=== PATIENT | male | born 1945 | race Caucasian/White ===

== ENCOUNTER 2020-06-04 08:26 | Outpatient (CLI) | payer MEDICARE, OTHER, SELFPAY ==
--- NOTE | 2020-06-04 08:41 | USCV_ITS ---
Dave Mcclain Age: 74 Gender: M : 1945 Exam Date: 06/04/2020 08:50 Ordering Phys: Noris Lin APN Technologist: Rex Vernon Exam Location: [facility] [place] Indication: SCREENING AORTA HISTORY: Diameter (cm) AP x Transverse x Length Velocity (cm/s) Waveform Prox Aorta: 1.65 x 1.92 x 152.80 Triphasic Mid Aorta: 1.45 x 1.70 x 116.00 Triphasic Distal Aorta: 1.70 x 2.03 x 119.20 Triphasic Right Iliac Prox: 1.35 x 1.58 x 149.80 Triphasic Left Iliac Prox: 1.65 x 1.48 x 125.10 Triphasic Stent Prox Landing x x Aneurysmal Sac Max x x Lt Lat Sac Dim Rt Lat Sac Dim Stent Dist Landing x x Right Iliac Stent x x Left Iliac Stent x x Right Renal Art Left Renal Art FINDINGS: SMALL AO NO AAA CONCLUSIONS 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 No evidence of abdominal aortic or bilateral iliac aneurysm. Praveen Saini MD (Electronically Signed) Final Date: 04 June 2020 09:51 S
== END 2020-06-04 08:27 | disposition home or self-care (01) ==
LOC: RAD 08:37
PROVIDERS: Visit Provider Nurse Practitioner
DX: Z13.6 Encounter for screening for cardiovascular disorders (principal)
CPT/HCPCS: 76706

== ENCOUNTER → 2020-10-03 13:55 | Outpatient (BNVA) | payer MEDICARE, OTHER, SELFPAY | PROVIDERS: Visit Provider Surgery | DX: Z01.812 Encounter for preprocedural laboratory examination (principal); Z20.822 Contact with and (suspected) exposure to COVID-19 | CPT/HCPCS: 87635 ==

== ENCOUNTER 2020-10-09 09:44 | Day surgery (SDC) | payer MEDICARE, OTHER, SELFPAY ==
[2020-10-09 07:28] VITALS: BMI 32.1
[2020-10-09 10:05] VITALS: BP 151/79; PULSE 74; RESP 18; TEMP 36.7; O2SAT 94
[2020-10-09 10:20] LABS: Glucose Point of Care 103 mg/dL (70-110)
[2020-10-09] MEDS: sodium chloride 0.9% 1,000 ML 30 ML IV (10:20)
--- NOTE | 2020-10-09 10:20 | W.PM.OPSFHP ---
Same Day Surgery H&P Indication for Procedure/HPI DATE OF PROCEDURE: October 09, 2020 CHIEF COMPLAINT/INDICATIONFOR SURGICAL PROCEDURE: screening colonoscopy PREOP DIAGNOSIS: screening colonoscopy PLANNED PROCEDRUE: Operation Date: 10/09/20 11:30 Proposed Procedures p Colonoscopy 47534 Z12.11(Not Applicable) - Jose Chahal MD Medications/Allergies* Home Medications Medication Instructions Recorded Confirmed Type albuterol sulfate [Ventolin HFA] 2 inh INHALATION PRN PRN 10/09/20 10/09/20 History amlodipine 10 mg PO DAILY 10/09/20 10/09/20 History fluticasone propionate 50 mcg INTRANASAL BID 10/09/20 10/09/20 History hydrochlorothiazide 12.5 mg PO DAILY 10/09/20 10/09/20 History insulin aspart U-100 [Novolog 10 unit SUBCUT TID 10/09/20 10/09/20 History Flexpen U-100 Insulin] insulin degludec [Tresiba 70 unit SUBCUT DAILY 10/09/20 10/09/20 History FlexTouch U-100] lisinopril 40 mg PO BID 10/09/20 10/09/20 History simvastatin 20 mg PO DAILY 10/09/20 10/09/20 History Allergies/Adverse Reactions Allergy/AdvReac Type Severity Reaction Status Date / Time Penicillins Allergy ALGY-Rash Verified 10/09/20 07:19 Pertinent Exam Findings alert, oriented x 3 and regular rate & rhythm Recommendations Surgery/Procedure today Coding Level of Care Code Acute 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
--- NOTE | 2020-10-09 10:28 | ANES.PREANE2 ---
Pre-Anesthetic Assessment Pre-Anesthetic Assessment: Height/Weight: Height 1.84 m Weight 108.862 kg Temp Pulse Resp BP Pulse Ox 98.1 F 74 18 151/79 94 10/09/20 10:05 10/09/20 10:05 10/09/20 10:05 10/09/20 10:05 10/09/20 10:05 Preop Diagnosis: screening colonoscopy Proposed Procedure: Operation Date: 10/09/20 11:30 Proposed Procedures p Colonoscopy 64582 Z12.11(Not Applicable) - Jose Chahal MD Was Beta Aileen taken within 24 hours: N/A Was Clonidine taken within 24 hours: N/A Last intake: Intake Last Liquid Date 10/08/20 Last Liquid Time 22:00 Last Solid Date 10/08/20 Last Solid Time 07:00 Social: Social History: No alcohol and No tobacco Exam: Pre-Anes Outpt Exam: alert, oriented x 3, clear to auscultation bilaterally and regular rate & rhythm Airway: Submandibular: WNL Cervical ROM: WNL MP: 3 Dentition: Full CV/HEM: CV/HEM: HTN Metabolic: Metabolic: DM and Morbid obesity Anesthetic Plan: ASA status: 3 Anesthesia: MAC Risk of > 500 ml blood loss (7ml/kg in children): No Meds/Allergies Current Medications: Current Medications Generic Name Dose Route Start Last Admin Trade Name Freq PRN Reason Stop Dose Admin Sodium Chloride 1,000 mls @ 30 ml s/hr 10/09/20 10:15 10/09/20 10:20 Sodium Chloride 0.9% IV 10/10/20 10:14 30 mls/hr .Q24H ERMIAS Administration Data Anesthesia Other Labs: Laboratory Results - last 48 hr 10/09/20 10:16 POC Glucose 103 Cardiac Studies: No Data to Display
[2020-10-09 11:05] VITALS: BP 81/56; PULSE 66; RESP 18; TEMP 36.2; O2SAT 91
[2020-10-09 11:23] VITALS: BP 110/63; PULSE 69; RESP 18; O2SAT 96
--- NOTE | 2020-10-09 14:29 | ANE.PACU2 ---
Inpatient post-anesthesia follow up: Airway intact: Yes Vital signs: Temperature 97.1 F Pulse Rate 69 Respiratory Rate 18 Blood Pressure 110/63 Pulse Oximetry 96 Oxygen Delivery Me thod Room Air Oxygen Flow Rate 4 Fraction of Inspir ed Oxygen Hydration adequate: Yes Nausea and vomiting: No Pain level: 1 Mental status: Baseline
== END 2020-10-09 11:50 | disposition home or self-care (01) ==
PROVIDERS: Visit Provider Surgery
PROC: 0DJD8ZZ Inspection of Lower Intestinal Tract, Via Natural or Artificial Opening Endoscopic (ICD-10-PCS; CPT 45378; principal; 2020-10-09 11:30)
DX: Z12.11 Encounter for screening for malignant neoplasm of colon (principal); D12.0 Benign neoplasm of cecum; D12.4 Benign neoplasm of descending colon; D12.5 Benign neoplasm of sigmoid colon; D12.3 Benign neoplasm of transverse colon; I10 Essential (primary) hypertension; E11.9 Type 2 diabetes mellitus without complications; E66.01 Morbid (severe) obesity due to excess calories; Z68.32 Body mass index [BMI] 32.0-32.9, adult; Z79.4 Long term (current) use of insulin
CPT/HCPCS: 36416; 45380; 82962; 88305; 96360; J2704; J7030

== ENCOUNTER 2021-03-04 09:25 | Outpatient (CLI) | payer MEDICARE, OTHER, SELFPAY ==
--- NOTE | 2021-03-04 09:47 | MR_ITS ---
WS: [id number] MRI HEAD WITH CONTRAST WITH ATTENTION TO THE INTERNAL AUDITORY CANALS TECHNIQUE: Sagittal T1, T2 axial, T2 axial flair, axial susceptibility weighted imaging, axial diffus ion weighted images, and coronal T2 images were obtained. Pre and post T1 axial and post T1 coronal i mages. ADC and FSPGR images. Post gadolinium images with attention to the internal auditory canals. A xial fiesta imaging. CLINICAL INFORMATION: SENSORINEURAL HEARING LOSS, BILATERAL COMPARISON: None. FINDINGS: No evidence of restricted diffusion to suggest acute ischemia. Ventricular system and basal cisterns are patent. Moderate small vessel changes. Moderate parenchymal volume loss. Normal posterior fossa. Normal vascular flow voids at the skull base. No extra axial fluid collections. No evidence of mass o r mass effect. Paranasal sinuses and mastoid air cells are well aerated. Normal optic chiasm and pituitary infundibulum. Moderate symmetric atrophy temporal lobes and hippoca mpal formations. Proximal 7th and 8th cranial nerves are normal. No evidence of enhancing IAC or CP a ngle mass. Normal cavernous sinuses and Meckel's cave. 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 This can be asymptomatic but can be seen with trigeminal neurovascular compression in th e appropriate clinical setting. Correlate for trigeminal neuralgia. No abnormal gadolinium enhancement. Normal dural venous sinuses. MR/MR iac's wo/w con* [id number] IMPRESSION: 1. No evidence of restricted diffusion to suggest acute ischemia. 2. No evidence of enhancing IAC or CP angle mass. 3. 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 This is often asymptomatic but can be seen with trigeminal neurovascular compression in the appropriate clinical setting. Darren elate for trigeminal neuralgia. 4. Moderate small vessel changes with moderate parenchymal volume loss. 5. Moderate symmetric atrophy temporal lobes and hippocampal formations. 6. No abnormal intracranial enhancement. 7. Paranasal sinuses and mastoid air cells are well aerated.
== END 2021-03-04 09:26 | disposition home or self-care (01) ==
PROVIDERS: Visit Provider Otolaryngology
DX: H90.3 Sensorineural hearing loss, bilateral (principal)
CPT/HCPCS: 70553; A9579

== ENCOUNTER 2021-11-12 09:40 | Emergency (ER) | payer MEDICARE, OTHER, SELFPAY ==
[2021-11-12 09:56] VITALS: BP 177/71; PULSE 81; RESP 16; TEMP 36.7; O2SAT 95; BMI 28.4
--- NOTE | 2021-11-12 10:07 | CT_ITS ---
WS: [id number] CT FACIAL BONES TECHNIQUE: Noncontrast facial bones with coronal and sagittal reformatted images. CLINICAL INFORMATION: nasal trauma COMPARISON: None. DLP: 634.[address] scans at [facility] use at least one of these dose optimization techniques: automated e xposure control; mA and/or kV adjustment per patient size (includes targeted exams where dose is matc hed to clinical indication); or iterative reconstruction. FINDINGS: Soft tissue edema with depressed slightly comminuted fractures involving the anterior nasal bones. Ir regular nasal deviation with fracture involving the anterior nasal septum. Mild mucosal thickening in the ethmoid air cells. Frontal sinuses are well aerated. Maxillary sinuses are well aerated. Sphenoid sinuses are well aerated. Mastoid air cells well aerated.Cavernous caroti d calcification. Normal parapharyngeal fat. Normal visualized nasopharynx. CT/CT facial bones wo con* [id number] IMPRESSION: 1. Depressed comminuted fractures of the anterior nasal bones. 2. Acute appearing fracture of the anterior nasal septum with RIGHT to LEFT na su septal deviation. 3. Mild mucosal thickening ethmoid air cells. Paranasal sinuses are otherwise well aerated.
--- NOTE | 2021-11-12 10:07 | CT_ITS ---
WS: [id number] CT HEAD TECHNIQUE: Noncontrast CT of the head obtained from the skullbase to the vertex. CLINICAL INFORMATION: injury/nasal trauma/GUERRERO COMPARISON: None. DLP: 1124.[address] scans at [facility] use at least one of these dose optimization techniques: automated e xposure control; mA and/or kV adjustment per patient size (includes targeted exams where dose is matc hed to clinical indication); or iterative reconstruction. FINDINGS: No evidence of intracranial hemorrhage or mass effect. Ventricular system and basal cisterns are [place] nt. Mild small vessel changes with moderate parenchymal volume loss. Tiny chronic lacunar infarct LEF T caudate. No extra-axial fluid collections. Paranasal sinuses and mastoid air cells are well aerated. . Soft tissue edema anterior face with part ially visualized anterior nasal bone fractures. CT/CT head wo con* [id number] IMPRESSION: 1. No evidence of intracranial hemorrhage or mass effect. 2. Mild small vessel changes with moderate parenchymal volume loss. 3. Soft tissue edema anterior face with partially visualized anterior nasal santos ne fractures. 4. No acute intracranial findings.
--- NOTE | 2021-11-12 10:08 | W.ED.HEATRA ---
HPI - Head Injury General: Chief complaint: Head Injury Stated complaint: nose bridge pain Time Seen by Provider: 11/12/21 09:47 Source: patient Mode of arrival: ambulatory Limitations: no limitations History of Present Illness: Patient is a nice 76-year-old male who presents to ED today with complaint of a facial injury. Patient states he was on a tractor and trying to move a branch when the branch came back and smacked him in the face/nose. He denies LOC. He states most of his pain is localized to the nose. He does have a headache. He feels like his nose is crooked . Patient is not on blood thinners. Tetanus is up-to-date. He is not having any neck pain. He has not had any epistaxis. MD Complaint: head injury and other (facial injury) Onset (ago): hour(s) Place: home Loss of Consciousness: no Location of injury: face Severity: mild Other Injuries: none Associated symptoms: Reports other (headache); Deny confusion, nausea, neck pain, vertigo or vomiting Review of Systems Eyes: Denies: change in vision, blurry vision, blind spots, floaters or seeing flashes ENMT: Reports: sinus pain (nasal pain/deformity); Denies: nasal discharge, nasal congestion, epistaxis or post nasal drip GI: Denies: nausea or vomiting Musc: Denies: neck pain Neuro: Reports: headache(s); Denies: numbness in extremities, weakness in extremities, sensory changes, lack of coordination, difficulty walking, dizziness, vertigo, confusion, behavioral changes, Slurred speech present, difficulty communicating thoughts or seizure-like activity [facility] ED PFSH: Medical History Diabetes mellitus Hypertension Surgical History H/O umbilical hernia repair Status post colonoscopy (10/09/20) Physical Exam Const: COMMON NORMALS: no acute distress, patient oriented x3, no limitations and alert ORIENTATION/CONSCIOUSNESS: Yes awake, Yes oriented to person, Yes oriented to place and Yes oriented to time HENMT: COMMON NORMALS: normocephalic, atraumatic and TM's normal bilaterally HEAD & SCALP: normal to inspection, normocephalic and atraumatic FACE & SINUS: normal facial exam (apart from nasal findings); no sinus tenderness, no crepitus and no Facial tenderness on exam of face and sinuses (apart from bony nose) NOSE: Normal nares present, Normal septum present (no septal hematoma), No nasal discharge present and Other nasal findings present (pt with bony tenderness/deformity to nasal bones); no Epistaxis present TYMPANIC MEMBRANE: TM's normal bilaterally MOUTH: other (no intraoral injuries noted) Eye: GENERAL EYE: appearance normal, both eyes and all related structures Neck/C-Spine: COMMON NORMALS: full ROM CERVICAL SPINE: Yes cervical ROM normal, No pain with cervical ROM, No Cervical spine tenderness and No step off deformity Neuro: CARINA COMA SCALE: document GCS findings Carina coma scale eye opening: Spontaneous [place] coma scale verbal response: Orientated Carina coma scale motor response: Obey commands [place] coma scale total score: 15 COMMON NORMALS: patient oriented x3, CN's II-XII intact bilaterally, moves all extremities, no focal motor deficits, no sensory deficits noted and gait normal SENSORIUM/ORIENTATION: Yes alert, Yes oriented to person, Yes oriented to place and Yes oriented to time Skin: TRAUMA: no lacerations or abrasions Course Vital Signs: Vital signs: Vital Signs Temperature 97.6 F 11/12/21 11:24 Pulse Rate 74 11/12/21 11:24 Respiratory Rate 16 11/12/21 11:24 Blood Pressure 162/70 11/12/21 11:24 Pulse Oximetry 94 11/12/21 11:24 Oxygen Delivery Me thod 11/12/21 11:12 MDM - Head Injury Medcial Decision Making CT head neg. CT facial bones showing depressed comminuted fractures of the anterior nasal bones and fracture of the anterior nasal septum with deviation. Patient will be placed on antibiotics and we will get him follow-up with ENT/Dr. Johns for further evaluation/treatment. Patient states he is comfortable with OTC medications for discomfort. Return to ED precautions given. Lab Data Radiology Impressions Face CT 11/12/21 10:07 IMPRESSION: 1. Depressed comminuted fractures of the anterior nasal bones. 2. Acute appearing fracture of the anterior nasal septum with RIGHT to LEFT nasal septal deviation. 3. Mild mucosal thickening ethmoid air cells. Paranasal sinuses are otherwise well aerated. Head CT 11/12/21 10:07 IMPRESSION: 1. No evidence of intracranial hemorrhage or mass effect. 2. Mild small vessel changes with moderate parenchymal volume loss. 3. Soft tissue edema anterior face with partially visualized anterior nasal bone fractures. 4. No acute intracranial findings. Discharge Plan Discharge Patient Disposition: Home Clinical Impression: Fracture of nasal bone Qualifiers: Encounter type: initial encounter Fracture type: closed Qualified Code(s): S02.2XXA - Fracture of nasal bones, initial encounter for closed fracture Condition: Stable Prescriptions: New cefdinir 300 mg capsule 300 mg PO BID 10 Days Qty: 20 0RF No Action amlodipine 10 mg tablet 10 mg PO DAILY simvastatin 20 mg tablet 20 mg PO DAILY hydrochlorothiazide 12.5 mg capsule 12.5 mg PO DAILY albuterol sulfate [Ventolin HFA] 90 mcg/actuation HFA aerosol inhaler 2 inh INHALATION PRN PRN (Reason: Wheezing) lisinopril 40 mg tablet 40 mg PO BID fluticasone propionate 50 mcg/actuation spray,suspension 50 mcg INTRANASAL BID insulin aspart U-100 [Novolog Flexpen U-100 Insulin] 100 unit/mL (3 mL) insulin pen 10 unit SUBCUT TID Tresiba FlexTouch U-100 100 unit/mL (3 mL) insulin pen 70 unit SUBCUT DAILY Discharge Orders: Discharge ED (Routine); Ordered 11/12/21 Ordered By: Joan Azul Referrals: Avni Johns MD [Physician] - Patient Instructions: Nasal Fracture (ED) Activity Restrictions/Additional Instructions: As we discussed you should hear from case management today or tomorrow in regards to your follow-up appointment with Dr. Johns/ENT. Coding Level of Care Code ED Dumper Bulk System for Rosaurag Fwd Exam Detailed
[2021-11-12 11:12] VITALS: BP 177/71; PULSE 81; RESP 16; TEMP 36.6; O2SAT 95
[2021-11-12 11:24] VITALS: BP 162/70; PULSE 74; RESP 16; TEMP 36.4; O2SAT 94
--- NOTE | 2021-11-14 13:17 | DCPLANNER ---
Addendum entered by Damari Quesada 12/02/21 13:38: Patient had a follow up appointment scheduled for 11.24.21 with ENT - patient did attend appointment. Addendum entered by Damari Quesada 11/20/21 15:29: Patient has a follow up appointment scheduled for Wednesday, November 24, 2021 at 3:[address] Johns, ENT. Clinic will call patient with appointment information. Original Note: harbor department manager had message to schedule a follow up appointment for patient with ENT. harbor department manager sent patients information to the front office staff at ENT. Patients information will be printed and reviewed. Clinic will call patient with appointment information.
== END 2021-11-12 11:30 | disposition home or self-care (01) ==
PROVIDERS: Emergency Provider Physician Assistant
DX: S02.2XXA Fracture of nasal bones, initial encounter for closed fracture (principal); Z79.4 Long term (current) use of insulin; E11.9 Type 2 diabetes mellitus without complications; I10 Essential (primary) hypertension; W20.8XXA Other cause of strike by thrown, projected or falling object, initial encounter
CPT/HCPCS: 70450; 70486; 99284

== ENCOUNTER → 2021-11-24 14:45 | Outpatient (BNVA) | payer MEDICARE, OTHER, SELFPAY | PROVIDERS: Visit Provider Otolaryngology | DX: X58.XXXA Exposure to other specified factors, initial encounter (principal); S02.2XXA Fracture of nasal bones, initial encounter for closed fracture; J34.2 Deviated nasal septum | CPT/HCPCS: 99203; 99204 ==

== ENCOUNTER 2021-11-27 09:52 | Day surgery (SDC) | payer MEDICARE, OTHER, SELFPAY ==
[2021-11-26 14:19] VITALS: BMI 31.6
[2021-11-27] VITALS (12 sets, daily range): BP systolic 125–164; BP diastolic 67–82; PULSE 72–89; RESP 12–18; TEMP 36.2–36.8; O2SAT 94–97
[2021-11-27] MEDS: sodium chloride 0.9% 1,000 ML 30 ML IV (10:20)
--- NOTE | 2021-11-27 10:23 | ANES.PREANE2 ---
Pre-Anesthetic Assessment Height/Weight: Height 1.85 m Weight 108.862 kg Temp Pulse Resp BP Pulse Ox O2 Del Method 97.5 F L 74 18 159/72 94 11/27/21 10:02 11/27/21 10:02 11/27/21 10:02 11/27/21 10:02 11/27/21 10:02 11/27/21 10:08 Preop Diagnosis: Displaced nasal and concomitant septal fracture Operation Date: 11/27/21 11:25 Proposed Procedures p ORIF Displacement Nasal/Septum, poss Turbinate Reduction(Not Applicable) - Avni Johns MD Familial anesthetic complications: None Was Beta Aileen taken within 24 hours: N/A Was Clonidine taken within 24 hours: N/A Last intake: Intake Last Liquid Date 11/26/21 Last Liquid Time 20:00 Last Solid Date 11/26/21 Last Solid Time 20:00 Social No alcohol and No tobacco Exam alert, oriented x 3, clear to auscultation bilaterally and regular rate & rhythm Airway Mallampati: Class III Dentition: full Pulmonary None reported CV/HEM Hypertension None reported Hepatic None reported GI None reported Metabolic Diabetes Mellitus and Hyperlipidemia [facility] None reported Neuropsych None reported Anesthetic Plan ASA status: 3 Anesthesia: General Risk of > 500 ml blood loss (7ml/kg in children): No Medications/Allergies Home Medications Medication Instructions Recorded Confirmed Last Taken Type albuterol sulfate 90 mcg/actuation 2 inh inhalation PRN PRN Wheezing 10/09/20 11/26/21 10/07/20 History aerosol inhaler (Ventolin HFA) amlodipine 10 mg tablet 10 mg PO DAILY 10/09/20 11/27/21 11/27/21 05:15 History fluticasone propionate 50 50 mcg intranasal BID 10/09/20 11/27/21 11/26/21 18:00 History mcg/actuation nasal spray,suspension hydrochlorothiazide 12.5 mg capsule 12.5 mg PO DAILY 10/09/20 11/27/21 11/26/21 05:15 History insulin aspart U-100 100 unit/mL 10 unit SUBCUT TID 10/09/20 11/27/21 11/26/21 18:00 History (3 mL) subcutaneous pen (Novolog Flexpen U-100 Insulin aspart) insulin degludec 100 unit/mL (3 70 unit SUBCUT DAILY 10/09/20 11/27/21 11/26/21 21:00 History mL) subcutaneous pen (Tresiba FlexTouch U-100 insulin) lisinopril 40 mg tablet 40 mg PO BID 10/09/20 11/27/21 11/26/21 21:00 History simvastatin 20 mg tablet 20 mg PO DAILY 10/09/20 11/27/21 11/26/21 07:00 History loratadine 10 mg tablet (Claritin) 10 mg PO DAILY 11/27/21 11/27/21 11/26/21 21:00 History Allergies Allergy/AdvReac Type Severity Reaction Status Date / Time Penicillins Allergy ALGY-Rash Verified 11/27/21 10:04 [facility] Anesthesia Medical History Diabetes mellitus Hypertension Surgical History H/O umbilical hernia repair Status post colonoscopy (10/09/20) Social History Smoking and tobacco status: never smoked Data Anesthesia Cardiac Studies: No Data to Display
[2021-11-27 10:38] LABS: Glucose Point of Care 84 mg/dL (70-110)
--- NOTE | 2021-11-27 12:10 | W.PM.OPSUD ---
Surgery/Procedure H&P Update DATE OF PROCEDURE: November 27, 2021 DATE H&P PERFORMED: 11/24/21 H&P UPDATE INFORMATION: I have reviewed H&P completed within last 30 days, I have examined patient prior to procedure and No changes to prior documentation CHANGES TO PREVIOUS DOCUMENTATION: No changes PREOP DIAGNOSIS: Displaced nasal and concomitant septal fracture PRIMARY INDICATION FOR PROCEDURE: Displaced nasal and septal fracture PLANNED PROCEDURE: Operation Date: 11/27/21 11:25 Proposed Procedures p ORIF Displacement Nasal/Septum, poss Turbinate Reduction(Not Applicable) - Avni Johns MD
[2021-11-27] MEDS: ceFAZolin 2,000 MG in sodium chloride 0.9% (plus) 50 ML 100 MG IV (12:22)
[2021-11-27] MEDS: oxymetazoline 0.05% Nasal Spray 15 mL 1 SPRAY NOSTRIL-B (12:43)
[2021-11-27] MEDS: neomycin-poly-bacitracin oint 28 gm 1 APPLIC TOPICAL (12:44)
--- NOTE | 2021-11-27 13:36 | PM.OP ---
Operative Report Date of procedure: November 27, 2021 Pre-op diagnosis: Preop Diagnosis Displaced nasal and concomitant septal fracture Post-op diagnosis: Displaced nasal and septal fracture. Deviated nasal septum. Inferior turbinate hypertrophy. Nasal obstruction. Post-op findings: Postoperatively the patient's septum is straight and his inferior turbinates are reduced bilaterally and his external nasal deformity was repositioned. Procedure done: Patient underwent open reduction of displaced nasal fracture with concomitant septal fracture/septoplasty and bilateral inferior turbinate partial resection with submucous resection. Implants: 2 septal splints. 2 Telfa packs. External thermal splint. Specimens removed/disposition: Segments of cartilage not sent to pathology. Inferior turbinates forwarded to pathology. Pathology: Bilateral partial inferior turbinate resections. Surgeon: Avni Johns MD Anesthesia: General and Local Estimated blood loss: 30 mL Complications: No complications encountered Findings: After injury on 11/12/2021 the patient was noted to have a displaced nasal bone fracture inward and downward displaced on the left side. Patient also found to have a significantly deviated nasal septum to the left side. There was compensatory turbinate hypertrophy right side greater than left. There was no fracture of the septum as well. No septal hematoma abscess or perforation noted. Brief History: 76-year-old male patient was struck by a branch while using his tractor to the nose. It caused a displaced external nasal bone fracture and deviated septum with fracture. It appears as if he probably had some deviation of septum before the injury as he does have right greater than left inferior turbinate compensatory hypertrophy. Patient is being brought to the operating room at this time to undergo open reduction of displaced nasal bone fracture along with concomitant septal fracture repair/septoplasty. Also will have inferior turbinates reduced to appropriate and equal size. The procedure its risks and complications of been explained in detail to the patient in the office setting. These risks included bleeding infection numbness scarring swelling bruising septal hematoma abscess or perforation change in sense of smell nasal dryness recurrent problems need for additional treatment cosmetic change and more serious risk such as heart attack or stroke or not surviving the surgery. With these things understood informed consent was granted and witnessed. Procedure: Description of procedure: The patient was placed on the operating table in the supine position. Adequate general endotracheal tube anesthesia was obtained. He was repositioned into a semirecumbent position. Eyes were taped shut. A timeout was accomplished identifying the patient date of plan procedure allergies fire risk and medications given. With all in agreement the procedure continued. The patient did receive Ancef IV for prophylaxis as he does not have a cephalosporin documented allergy and only had a rash with penicillins. The patient's nose was packed with cottonoids soaked in 12-hour Afrin. Nasal hairs were trimmed with scissors. The Afrin packs were removed and the external nose and septum and inferior turbinates were infiltrated with local. A total of 10.2 mL of 2% Xylocaine with 1-100,000 epinephrine was utilized. The Afrin packs were reapplied to the nose and the patient was prepped and draped in usual fashion. Once again the packs were removed from the nose. The septum remains significantly displaced off to the left side. Inferior turbinate on the right side remained 4+ hypertrophic. 2-3+ on the left side. External nasal bone depressed inward and downward on the left side. A [place] elevator was used to elevate the depressed and displaced nasal bone segment lifting and torquing off to the left side. This repositioned it reasonably well. A left hemitransfixion incision was then created with a 15 blade carrying it down to the level of septal cartilage. A mucoperichondrial periosteal flap was then raised on the left side in all directions. An inferior strip of cartilage off the crest of the left side inferiorly was resected with a half round knife and Shyann forceps. Then the quadrangular cartilage at its fracture point was dislocated from the perpendicular plate of the ethmoid and vomer. A posterior tunnel was created on the right side. Fragments of bone that were present were resected in piecemeal fashion. A drain hole was created on the left side of the septum and prevent hematoma formation. The maxillary crest was fractured back and was straight midline position. Inferior turbinates were outfractured. They were both cauterized medially and laterally intramurally with needle tip Bovie. Then turbinate scissors were used to cut the distal aspect of both inferior turbinate that was excessively long and thick. More of the proximal bone was resected with Shyann forceps as well. This caused the inferior turbinates to be approximately 2+ bilaterally. A [place] elevator was able to be passed through both nasal chambers without obstruction. Once again the external nasal bones were checked for proper positioning. The septal pocket was suctioned clean. The left hemitransfixion incision was closed loosely with interrupted 4-0 chromic suture. 2 septal splints were then cut appropriately coated with Neosporin and one was applied to each side of the septum. These were sutured in a through and through fashion with 3-0 Prolene. 2 Telfa packs were then cut to size and coated with Neosporin. One was applied each side of the nose extending up into the nasal bone angle to keep that elevated. The external nose was then cleansed. Benzoin was applied to the skin. Layers of paper tape were applied. Then the thermal splint was placed after cutting it to proper size and held in place till it formed appropriately. The packs were once again checked for proper positioning. Mouth was suctioned clean with the Yankauer suction. There was no sign of active bleeding. The drapes were removed. A drip pad was applied under the patient's nose. The patient was then returned to anesthesia for wake-up and extubation. He tolerated the procedure well had an estimated blood loss of 30 mL and arrived in recovery in stable condition.
--- NOTE | 2021-11-27 13:40 | SUR.OPER ---
WE USED 6 2@ LIDOCAINE WITH EPI CARPULES IN BILATERAL NOSTRILS.
[2021-11-27] MEDS: fentaNYL 50 mcg/mL INJ 2mL IVP (14:01)
[2021-11-27 14:13] LABS: Glucose Point of Care 75 mg/dL (70-110)
== END 2021-11-27 15:10 | disposition home or self-care (01) ==
PROVIDERS: PCP Nurse Practitioner Family; Visit Provider Otolaryngology
PROC: 0NSB04Z Reposition Nasal Bone with Internal Fixation Device, Open Approach (ICD-10-PCS; CPT 21330; principal; 2021-11-27 11:15)
DX: S02.2XXA Fracture of nasal bones, initial encounter for closed fracture (principal); X58.XXXA Exposure to other specified factors, initial encounter; J34.2 Deviated nasal septum; I10 Essential (primary) hypertension; E11.9 Type 2 diabetes mellitus without complications; E78.5 Hyperlipidemia, unspecified; Z79.4 Long term (current) use of insulin
CPT/HCPCS: 30130; 30520; 36416; 82962; 88305; 88311; J1100; J2370; J2405; J2704; J3010; J3490; J7030

== ENCOUNTER → 2021-12-03 09:34 | Outpatient (BNVA) | payer MEDICARE, OTHER, SELFPAY | PROVIDERS: PCP Nurse Practitioner Family; Visit Provider Otolaryngology | DX: Z48.810 Encounter for surgical aftercare following surgery on the sense organs (principal); J34.2 Deviated nasal septum; S02.2XXA Fracture of nasal bones, initial encounter for closed fracture; X58.XXXA Exposure to other specified factors, initial encounter | CPT/HCPCS: 99024 ==

== ENCOUNTER → 2021-12-17 08:31 | Outpatient (BNVA) | payer MEDICARE, OTHER, SELFPAY | PROVIDERS: PCP Nurse Practitioner Family; Visit Provider Otolaryngology | DX: Z48.810 Encounter for surgical aftercare following surgery on the sense organs (principal); S02.2XXA Fracture of nasal bones, initial encounter for closed fracture; J34.2 Deviated nasal septum; Z98.890 Other specified postprocedural states; X58.XXXA Exposure to other specified factors, initial encounter | CPT/HCPCS: 99024 ==

== ENCOUNTER 2022-04-30 13:15 | Emergency (ER) | payer MEDICARE, OTHER, SELFPAY ==
[2022-04-30 13:20] VITALS: BP 160/83; PULSE 86; RESP 16; TEMP 36.7; O2SAT 95
--- NOTE | 2022-04-30 13:33 | XRR_ITS ---
PROCEDURE INFORMATION: Exam: XR Left Knee Exam date and time: 04/30/2022 1:42 PM Age: 76 years old Clinical indication: Injury or trauma; Other: Chainsaw; Laceration; Patella or knee; Left; With foreign body; Additional info: Chainsaw injury, concern for fb TECHNIQUE: Imaging protocol: Radiologic exam of the Left knee. Views: 3 views. COMPARISON: No relevant prior studies available. 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 Soft tissues: Normal. Vasculature: Scattered vascular calcifications. XR/XR knee LT 3V* [id number] IMPRESSION: 1. Negative for fracture, dislocation or radiodense foreign body. 2. Scattered vascular calcifications. 3. 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
[2022-04-30] MEDS: bacitracin ointment Pkt 1 EACH TOPICAL (15:19)
[2022-04-30] MEDS: tetanus-dipt-pertussis 0.5 mL SDV IM (15:19)
--- NOTE | 2022-04-30 15:21 | ED_ITS ---
Documented by User: SHILA Trujillo-Lawson 05/06/22 17:36 HPI - Extremity Problem General: Chief complaint: Extremity Injury, Lower Stated complaint: chainsaw to left leg Time Seen by Provider: 04/30/22 13:25 History of Present Illness: Patient is in today for chainsaw injury to the left leg. He reports that his chainsaw got caught up in a cedar tree and kicked back and got him on the medial left knee. Patient cannot recall his last tetanus vaccine. Associated symptoms: Deny chest pain or fever(s) Review of Systems Const: Denies: fever(s) or chills Card: Denies: chest pain or palpitations Resp: Denies: dyspnea, productive cough or non-productive cough Musc: Reports: joint pain (Left knee) Skin/Breast: Reports: other (Laceration from chainsaw medial left knee) [facility] ED PFSH: Medical History Diabetes mellitus Hypertension Surgical History H/O umbilical hernia repair Status post colonoscopy (10/09/20) Social History Smoking and tobacco status: never smoked Physical Exam Const: COMMON NORMALS: no acute distress, patient oriented x3, alert and well nourished Resp: COMMON NORMALS: normal respiratory effort and No use of accessory muscles Extremity: NARRATIVE EXTREMITY EXAM: There is a jagged laceration from chainsaw medial left knee does not appear to involve deeper structures. Bleeding is controlled with the gauze in place. Patient has full flexion extension of the knee. 4 cm x 5 cm area of laceration and skin avulsion. Neuro: COMMON NORMALS: patient oriented x3 SENSORIUM/ORIENTATION: Yes alert Procedures Laceration knee: Site: lower extremity Side (If applicable): left Size (cm): 5 Local Anesthetic: lidocaine 1% Amount of anesthesia used (mL): 10 Pre-repair: wound explored, irrigated extensively, deep structures intact and wound margins revised Skin layer closed with: nylon Size (cm): 4-0 Technique: running (running lock stitch by Dr. Call) Course Vital Signs: Vital signs: Vital Signs Temperature 98.1 F 04/30/22 13:20 Pulse Rate 86 04/30/22 13:20 Respiratory Rate 16 04/30/22 15:36 Blood Pressure 169/83 04/30/22 15:36 Pulse Oximetry 95 04/30/22 13:20 Oxygen Delivery Me thod 04/30/22 13:20 MDM - Extremity (Nontraumatic) Medical Decision Making differentials include laceration, skin avulsion, retained foreign body, fracture X-ray 3 view wet read: No acute osseous deformity or radiodense foreign bodies appreciated Radiologist read: negative for fracture, dislocation, radiodense foreign body Wound is numbed with 1% lidocaine 6 cc patient tolerated well. Wound is irrigated with approximately 800 cc of normal saline using an 18-gauge IV catheter for pressured irrigation. Discussed wound with Dr. Call who evaluated the wound and completed wound repair. See procedure note. Wound repair completed patient tolerated well no immediate complications. Advised of aftercare. Provide patient with a knee immobilizer to allow the wound to be in an extended position 3 to 5 days for best healing since this is overlying a joint. Discussed teresa conservative care. Start patient on clindamycin antibiotic for prophylactic treatment. Update patient's tetanus today. Have patient return for suture removal in 14 days. Return to the ER sooner as needed for new or worsening symptoms. Lab Data Radiology Impressions Knee X-Ray 04/30/22 13:33 IMPRESSION: 1. Negative for fracture, dislocation or radiodense foreign body. 2. Scattered vascular calcifications. 3. 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 Discharge Plan Discharge Patient Disposition: Home Clinical Impression: Laceration Condition: Stable Prescriptions: No Action amlodipine 10 mg tablet 10 mg PO DAILY simvastatin 20 mg tablet 20 mg PO DAILY hydrochlorothiazide 12.5 mg capsule 12.5 mg PO DAILY albuterol sulfate [Ventolin HFA] 90 mcg/actuation HFA aerosol inhaler 2 inh INHALATION PRN PRN (Reason: Wheezing) lisinopril 40 mg tablet 40 mg PO BID fluticasone propionate 50 mcg/actuation spray,suspension 50 mcg INTRANASAL BID insulin aspart U-100 [Novolog FlexPen U-100 Insulin] 100 unit/mL (3 mL) insulin pen 10 unit SUBCUT TID Tresiba FlexTouch U-100 100 unit/mL (3 mL) insulin pen 70 unit SUBCUT DAILY Claritin 10 mg Tablet 10 mg PO DAILY oxycodone-acetaminophen 10-325 mg tablet 1 tab PO Q4H PRN (Reason: pain) Qty: 30 0RF Discharge Orders: Discharge ED (Routine); Ordered 04/30/22 Ordered By: Mary De Anda Referrals: Jyoti De Anda FNP [Primary Care Provider] - Discharge Diet: Usual diet Discharge Activity: Increase activity as tolerated Patient Instructions: Care For Your Stitches (ED) Activity Restrictions/Additional Instructions: Keep sutures clean and dry. Wear knee immobilizer for the next 3 to 5 days to allow for healing. Take antibiotic as directed. Follow-up in 14 days for suture removal. Return sooner as needed for new or worsening symptoms Sign Out Sign Out Data: Patient Sign Out occurred on 04/30/22 at 15:31. Patient's care was discussed, and care was transferred from to Ramin Call DO. Coding Level of Care Code ED Coder Operator for Chg Fwd Exam Expanded Problem Focused Documented by User: Ramin Call DO 05/12/22 16:30 HPI - Extremity Problem General: Chief complaint: Extremity Injury, Lower Stated complaint: chainsaw to left leg Time Seen by Provider: 04/30/22 13:25 [facility] ED PFSH: Medical History Diabetes mellitus Hypertension Surgical History H/O umbilical hernia repair Status post colonoscopy (10/09/20) Social History Smoking and tobacco status: never smoked Procedures Laceration Laceration 1: Site: lower extremity Side (If applicable): left Size (cm): 7.5 (Nurse practitioner note listed as 5 cm that is incorrect it was 3 inches long which would= 1.5 cm) Description: linear and irregular Depth: simple, single layer Local Anesthetic: lidocaine 1% and with epi Amount of anesthesia used (mL): 7 Pre-repair: wound explored, irrigated extensively, deep structures intact and wound margins revised (Wound margin revised to removed nonviable tissue and create fresh skin edges to allow for primary closure) Skin layer closed with: nylon Size (cm): 4-0 Technique: running (Running locking suture) Course Vital Signs: Vital signs: Vital Signs Temperature 98.1 F 04/30/22 13:20 Pulse Rate 86 04/30/22 13:20 Respiratory Rate 16 04/30/22 15:36 Blood Pressure 169/83 04/30/22 15:36 Pulse Oximetry 95 04/30/22 13:20 Oxygen Delivery Me thod 04/30/22 13:20 MDM - Extremity (Nontraumatic) Medical Decision Making differentials include laceration, skin avulsion, retained foreign body, fracture X-ray 3 view wet read: No acute osseous deformity or radiodense foreign bodies appreciated Radiologist read: negative for fracture, dislocation, radiodense foreign body Wound is numbed with 1% lidocaine 6 cc patient tolerated well. Wound is irrigated with approximately 800 cc of normal saline using an 18-gauge IV catheter for pressured irrigation. Discussed wound with Dr. Call who evaluated the wound and completed wound repair. See procedure note. Wound repair completed patient tolerated well no immediate complications. Advised of aftercare. Provide patient with a knee immobilizer to allow the wound to be in an extended position 3 to 5 days for best healing since this is overlying a joint. Discussed teresa conservative care. Start patient on clindamycin antibiotic for prophylactic treatment. Update patient's tetanus today. Have patient return for suture removal in 14 days. Return to the ER sooner as needed for new or worsening symptoms. Patient care handoff received from De Anda continuation of ED evaluation. I personally saw and evaluated patient and reperformed harvey portions of E/M. See procedure note for repair of laceration. Patient tolerated well wound care instructions given. Medical Records I reviewed the patient's medical records. Lab Data I reviewed the patient's lab results. Radiology Impressions Knee X-Ray 04/30/22 13:33 IMPRESSION: 1. Negative for fracture, dislocation or radiodense foreign body. 2. Scattered vascular calcifications. 3. 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 Discharge Plan Discharge Patient Disposition: Home Clinical Impression: Laceration Condition: Stable Prescriptions: No Action amlodipine 10 mg tablet 10 mg PO DAILY simvastatin 20 mg tablet 20 mg PO DAILY hydrochlorothiazide 12.5 mg capsule 12.5 mg PO DAILY albuterol sulfate [Ventolin HFA] 90 mcg/actuation HFA aerosol inhaler 2 inh INHALATION PRN PRN (Reason: Wheezing) lisinopril 40 mg tablet 40 mg PO BID fluticasone propionate 50 mcg/actuation spray,suspension 50 mcg INTRANASAL BID insulin aspart U-100 [Novolog FlexPen U-100 Insulin] 100 unit/mL (3 mL) insulin pen 10 unit SUBCUT TID Tresiba FlexTouch U-100 100 unit/mL (3 mL) insulin pen 70 unit SUBCUT DAILY Claritin 10 mg Tablet 10 mg PO DAILY oxycodone-acetaminophen 10-325 mg tablet 1 tab PO Q4H PRN (Reason: pain) Qty: 30 0RF Discharge Orders: Discharge ED (Routine); Ordered 04/30/22 Ordered By: Mary De Anda Referrals: Jyoti De Anda FNP [Primary Care Provider] - Discharge Diet: Usual diet Discharge Activity: Increase activity as tolerated Patient Instructions: Care For Your Stitches (ED) Activity Restrictions/Additional Instructions: Keep sutures clean and dry. Wear knee immobilizer for the next 3 to 5 days to allow for healing. Take antibiotic as directed. Follow-up in 14 days for suture removal. Return sooner as needed for new or worsening symptoms Sign Out Sign Out Data: Patient Sign Out occurred on 04/30/22 at 15:31. Patient's care was discussed, and care was transferred from to Ramin Call DO. Coding Level of Care Code ED Coder Operator for Ángel Fwd Exam Expanded Problem Focused
[2022-04-30] MEDS: lidocaine 1% INJ 10 mL (per mL) INJECTION (15:22)
[2022-04-30 15:36] VITALS: BP 169/83; RESP 16
== END 2022-04-30 15:40 | disposition home or self-care (01) ==
PROVIDERS: Emergency Provider Family Medicine; PCP Nurse Practitioner Family
DX: S81.012A Laceration without foreign body, left knee, initial encounter (principal); W29.3XXA Contact with powered garden and outdoor hand tools and machinery, initial encounter; E11.9 Type 2 diabetes mellitus without complications; I10 Essential (primary) hypertension; Z79.4 Long term (current) use of insulin; Z23 Encounter for immunization
CPT/HCPCS: 12002; 29530; 73562; 90471; 90715; 99283

== ENCOUNTER 2023-11-23 10:41 | Outpatient (CLI) | payer MEDICARE, OTHER, SELFPAY ==
--- NOTE | 2023-11-23 10:46 | XR_ITS ---
WS: [id number] Examination: XR shoulder LT min 2V* [id number] Reason for Exam: PAIN IN LEFT SHOULDER Date: November 23, 2023 Comparison: None. Findings: The bone density is mildly diminished. There is no destruction There is no displaced fracture or dislocation. The AC joint is intact on these nonstress views mild AC joint degenerative change changes noted. There is flattening and chronic change. Osteophyte formation off the glenoid. Mild chronic changes at the greater tuberosity are also noted XR/XR shoulder LT min 2V* [id number] Impression: Chronic changes are noted particular involving the glenoid and greater tuberosi ty.
== END 2023-11-23 10:42 | disposition home or self-care (01) ==
PROVIDERS: PCP Nurse Practitioner Family; Visit Provider Nurse Practitioner Family
DX: S43.432A Superior glenoid labrum lesion of left shoulder, initial encounter (principal); M25.712 Osteophyte, left shoulder
CPT/HCPCS: 73030